=== PATIENT | female | born 1990 | race Caucasian/White ===

== ENCOUNTER 2017-08-02 15:27 | Emergency (ER) | payer SELFPAY ==
[~2017-08-02] VITALS: Ht 165.1 cm; Wt 101.0 kg
[2017-08-02 15:36] VITALS: BP 184/93; PULSE 104; RESP 16; TEMP 99; O2SAT 99
--- NOTE | 2017-08-02 17:08 | RADRPT ---
EXAM DATE/TIME: 08/02/2017 16:48 [place] COMPARISON: No previous studies available for comparison. INDICATIONS : Left foot pain after patient tripped today MEDICAL HISTORY : None. SURGICAL HISTORY : None. ENCOUNTER: Initial ACUITY: 1 day PAIN SCORE: 5/10 LOCATION: Left dorsal surface of foot FINDINGS: Three view examination of the left foot demonstrates no soft tissue swelling, dislocation, or fractur e. The tarsal bones appear intact. The interphalangeal and metatarsophalangeal joints are intact. The calcaneus is intact. Bony mineralization is normal. 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 CONCLUSION: No acute fracture or joint dislocation. Chas Leung MD on August 02, 2017 at 17:04 Board Certified Radiologist. This report was verified electronically.
--- NOTE | 2017-08-02 17:43 | PD ---
HPI Chief Complaint: Injury Time Seen by Provider: 16:27 Travel History International Travel<30 days: No Contact w/Intl Traveler<30days: No Traveled to known affect area: No History of Present Illness HPI This is a 26-year-old female here with left foot pain after twisting injury today. She denies paresthesia or weakness of the extremity. She reports she twisted the foot while walking on uneven pavement. She did not fall to the ground. No head injury loss of consciousness. No other injuries. She reports constant, throbbing pain localized to the foot. Worse with weightbearing. Alleviated with rest. PFSH Past Medical History Medical History: Denies Significant Hx Hx Anticoagulant Therapy: No Diabetes: No Diminished Hearing: No Tetanus Vaccination: Unknown Influenza Vaccination: No ?: Not Social History Alcohol Use: Yes (occ) Tobacco Use: No Substance Use: No Allergies-Medications (Allergen,Severity, Reaction): Coded Allergies: No Known Allergies (Unverified , 08/02/17) Review of Systems Except as stated in HPI: all other systems reviewed are Neg General / Constitutional: No: Fever HENT: No: Headaches Physical Exam Narrative GENERAL: Alert and well-appearing 26-year-old female SKIN: Warm and dry. HEAD: Normocephalic. Atraumatic EYES: No injection or drainage. NECK: Supple, trachea midline. No midline spine tenderness GASTROINTESTINAL: nondistended. MUSCULOSKELETAL: No cyanosis, or edema. LUE: Ankle is nontender. + Tenderness and mild swelling to the dorsal aspect of the foot. No obvious deformity. 2+ DP pulse. Normal sensation. Brisk cap refill. Data Data Last Documented VS Vital Signs Date Time Temp Pulse Resp B/P (MAP) Pulse Ox O2 Delivery O2 Flow Rate FiO2 08/02/17 15:36 99.0 104 16 184/93 (123) 99 Orders Orders Ed Urine Pregnancytest Poc (08/02/17 16:32) Foot, Complete ([id number]) (08/02/17 ) [facility] Medical Decision Making Medical Screen Exam Complete: Yes Emergency Medical Condition: Yes Differential Diagnosis Metacarpal fracture, midfoot sprain, contusion Narrative Course 26-year-old female here with left foot pain after twisting injury today. Extremities neurovascularly intact. X-rays negative for fracture. Diagnosis Primary Impression: Foot sprain Qualified Codes: S93.602A - Unspecified sprain of left foot, initial encounter Referrals: Primary Care Physician Departure Forms: Tests/Procedures, Work Release Enter return to work date: August 05, 2017 Additional Instructions: Ice and elevate the extremity. Ryder wrap and crutches for weightbearing. Tylenol and ibuprofen as needed for pain. Follow-up with her primary doctor. Disposition: 01 DISCHARGE HOME Condition: Stable Abby Tirado August 02, 2017 17:43
== END 2017-08-02 18:05 | disposition home or self-care (01) ==
LOC: PHEFT 15:27
DX: S93.602A Unspecified sprain of left foot, initial encounter (principal); X50.1XXA Overexertion from prolonged static or awkward postures, initial encounter
CPT/HCPCS: 73630; 84703; 99284; E0113